=== PATIENT | male | born 1990 | race Caucasian/White ===

== ENCOUNTER 2016-07-21 14:59 | Emergency (ER) | payer MEDICARE, MEDICAID ==
[2016-07-21 14:59] VITALS: BMI 20.3
[2016-07-21 15:08] VITALS: RESP 18; TEMP 98
[2016-07-21 15:22] VITALS: O2SAT 100
--- NOTE | 2016-07-21 15:40 | C.PDOC ---
History Of Present Illness 26 yr old male presents to the ER stating yesterday he was shoveling some heavy snow and now he has pain in the lower back which is made worse with movement. 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 Patient denies fever, chest pain, SOB, vomiting, abdominal pain, diarrhea, dysuria, hematuria, incontinence, weakness or numbness. Time Seen by Provider: 07/21/16 15:17 Chief Complaint (Nursing): Back Pain History Per: Patient History/Exam Limitations: no limitations Onset/Duration Of Symptoms: Days (1) Current Symptoms Are (Timing): Still Present Quality Of Discomfort: Aching Pain Scale Rating Of: 5 Exacerbating Factor(s): Movement Recent travel outside of the [place]: No Past Medical History Reviewed: Historical Data, Nursing Documentation, Vital Signs Vital Signs: Last Vital Signs Temp 98 F 07/21/16 15:18 Pulse 60 07/21/16 15:18 Resp 18 07/21/16 15:18 BP 107/65 07/21/16 15:18 Pulse Ox 100 07/21/16 15:42 - Medical History PMH: No Chronic Diseases Other PMH: Clubbed feet Other Surgeries: Surgery to the left foot and ankle for clubbed feet - [facility] Procedures CL REDUC DISLOC-SHOULDER (09/24/12) Family History: States: No Known Family Hx - Social History Hx Alcohol Use: Yes Hx Substance Use: No - Immunization History Hx Tetanus Toxoid Vaccination: No Hx Influenza Vaccination: No Hx Pneumococcal Vaccination: No Review Of Systems Except As Marked, All Systems Reviewed And Found Negative. Constitutional: Negative for: Fever Cardiovascular: Negative for: Chest Pain Respiratory: Negative for: Shortness of Breath Gastrointestinal: Negative for: Vomiting, Abdominal Pain, Diarrhea Genitourinary: Negative for: Dysuria, Incontinence, Hematuria Musculoskeletal: Positive for: Back Pain (lower back pain ), Other ((+) Left ankle pain ) Neurological: Negative for: Weakness, Numbness Physical Exam - Physical Exam Appears: Non-toxic, No Acute Distress Skin: Warm, Dry Head: Atraumatic, Normacephalic Eye(s): bilateral: Normal Inspection Oral Mucosa: Moist Neck: Normal, Normal ROM, No Midline Cervical Tenderness, No Paracervical Tenderness, Supple Chest: Symmetrical, No Tenderness Cardiovascular: Rhythm Regular, No Friction Rub, No Murmur Respiratory: Normal Breath Sounds, No Rales, No Rhonchi, No Stridor, No Wheezing Gastrointestinal/Abdominal: Normal Exam, Soft, No Tenderness, No Guarding, No Rebound Back: Paraspinal Tenderness (bilateral mild paraspinal lumbar tenderness. No midline tenderness) Extremity: Normal ROM, Capillary Refill (< 2 sec), Other (Left Ankle - Mild swelling to the plantar arch. No tenderness. ) Extremity: Bilateral: Normal Color And Temperature Neurological/Psych: Oriented x3, Normal Speech, Normal Motor, Normal Sensation Gait: Steady ED Course And Treatment O2 Sat by Pulse Oximetry: 100 (on RA) Pulse Ox Interpretation: Normal Progress Note: No xrays are warranted at this time as the patient had no acute trauma and is walking with normal steady gait. On re-exam, the patient reports improvement of symptoms. Lungs are CTA, heart is RRR, abdomen is soft, non- tender and tolerating PO well. Follow up with the medical doctor/Research Geologist within 1-2 days. Return if worsened. Disposition - Disposition Referrals: Podiatry Clinic [Outside] Disposition: HOME/ ROUTINE Disposition Time: 16:01 Condition: GOOD Additional Instructions: Follow up with the medical doctor/Research Geologist within 1-2 days. Return if worsened. 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 - Scribe Statement The provider has reviewed the documentation as recorded by the Scribe Dyan Jarvis All medical record entries made by the Kristie were at my direction and personally dictated by me. I have reviewed the chart and agree that the record accurately reflects my personal performance of the history, physical exam, medical decision making, and the department course for this patient. I have also personally directed, reviewed, and agree with the discharge instructions and disposition.
[2016-07-21 16:26] VITALS: BP 110/68; PULSE 62
== END 2016-07-21 16:26 | disposition home or self-care (01) ==
LOC: C.ER 14:59
DX: S39.012A Strain of muscle, fascia and tendon of lower back, initial encounter (principal); X58.XXXA Exposure to other specified factors, initial encounter; Y93.H1 Activity, digging, shoveling and raking; M25.572 Pain in left ankle and joints of left foot
CPT/HCPCS: 96372; 99283; J1885

== ENCOUNTER 2016-08-15 13:31 | Emergency (ER) | payer MEDICARE, MEDICAID ==
[2016-08-15 13:31] VITALS: BMI 20.3
[2016-08-15 13:43] VITALS: BP 107/66; PULSE 85; RESP 20; TEMP 97.4; O2SAT 100
--- NOTE | 2016-08-15 15:08 | C.PDOC ---
History Of Present Illness 26 year old patient presents to the ED complaining of bilateral chronic ankle pain that has been ongoing for several years. Patient reports he has a history of bilaterally clubbed feet. He had surgery on them, but there has been pain since. Patient denies any trauma, numbness or weakness. Time Seen by Provider: 08/15/16 13:51 Chief Complaint (Nursing): Lower Extremity Problem/Injury History Per: Patient History/Exam Limitations: no limitations Onset/Duration Of Symptoms: Other (several years) Current Symptoms Are (Timing): Still Present Severity: Moderate Pain Scale Rating Of: 4 Recent travel outside of the [place]: No Past Medical History Reviewed: Historical Data, Nursing Documentation, Vital Signs Vital Signs: Last Vital Signs Temp 97.4 F L 08/15/16 13:41 Pulse 85 08/15/16 13:41 Resp 20 08/15/16 13:41 BP 107/66 08/15/16 13:41 Pulse Ox 100 08/15/16 20:15 - [facility] Procedures CL REDUC DISLOC-SHOULDER (09/24/12) Family History: States: Unknown Family Hx - Social History Hx Alcohol Use: Yes Hx Substance Use: No - Immunization History Hx Tetanus Toxoid Vaccination: No Hx Influenza Vaccination: No Hx Pneumococcal Vaccination: No Review Of Systems Except As Marked, All Systems Reviewed And Found Negative. Musculoskeletal: Positive for: Other (bilateral ankle pain) Neurological: Negative for: Weakness, Numbness Physical Exam - Physical Exam Appears: Non-toxic, No Acute Distress Skin: Warm, Dry Cardiovascular: Rhythm Regular Extremity: Normal ROM, No Calf Tenderness, Capillary Refill (<2 seconds), No Deformity, Other (minimal swelling to the medial aspect of bilateral ankles; normal pulse; <2 seconds capillary refill) Neurological/Psych: Oriented x3, Normal Motor, Normal Sensation Gait: Steady ED Course And Treatment O2 Sat by Pulse Oximetry: 100 (RA) Pulse Ox Interpretation: Normal Progress Note: Flexeril and Toradol given. Upon reassessment, patient's pain is improving. Patient is discharged and instructed to follow up with PMD. Return if symptoms worsen. Disposition - Disposition Referrals: Podiatry Clinic [Outside] Disposition: HOME/ ROUTINE Disposition Time: 15:04 Condition: GOOD Additional Instructions: Follow up with the medical doctor within 1-2 days. Return if worsened. Prescriptions: Naproxen [Naprosyn] 500 mg PO BID #20 tab traMADol [Ultram] 50 mg PO Q6 PRN #15 tab PRN Reason: Pain Instructions: Swollen Joint (ED) - Clinical Impression Clinical Impression: Pain in both feet, Ankle pain - PA / HOUSING COORDINATOR / Resident Statement MD/DO has reviewed & agrees with the documentation as recorded. - Scribe Statement The provider has reviewed the documentation as recorded by the Scribe Pooja Quinn All medical record entries made by the Scribe were at my direction and personally dictated by me. I have reviewed the chart and agree that the record accurately reflects my personal performance of the history, physical exam, medical decision making, and the department course for this patient. I have also personally directed, reviewed, and agree with the discharge instructions and disposition.
== END 2016-08-15 15:10 | disposition home or self-care (01) ==
LOC: C.ER 13:31
DX: M25.572 Pain in left ankle and joints of left foot (principal); M25.571 Pain in right ankle and joints of right foot
CPT/HCPCS: 96372; 99284; J1885

== ENCOUNTER 2016-12-26 20:36 | Emergency (ER) | payer MEDICARE, MEDICAID ==
[2016-12-26 20:37] VITALS: BMI 20.3
[2016-12-26 20:50] VITALS: BP 123/69; PULSE 89; RESP 16; TEMP 98.2; O2SAT 98
--- NOTE | 2016-12-26 23:30 | CT ---
EXAM: CT Right Lower Extremity Without Intravenous Contrast CLINICAL HISTORY: 26 years old, male; Injury or trauma; Fall; Initial encounter; Swelling (edema); Ankle and foot; Right; Additional info: Injury of foot/ankle, S/P multiple foot surgeries TECHNIQUE: Axial computed tomography images of the right lower extremity without intravenous contrast. All CT scans at this facility use one or more dose reduction techniques, viz.: automated exposure control; ma/kV adjustment per patient size (including targeted exams where dose is matched to indication; i.e. head); or iterative reconstruction technique. Coronal and sagittal reformatted images were created and reviewed. COMPARISON: No relevant prior studies available. FINDINGS: Bones/joints: No acute fracture. No dislocation. Soft tissues: Moderate soft tissue swelling. IMPRESSION: Moderate soft tissue swelling, without acute fracture.
--- NOTE | 2016-12-26 23:34 | C.PDOC ---
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 Patient has a Hx of multiple surgeries on his feet. Time Seen by Provider: 12/26/16 21:54 Chief Complaint (Nursing): Lower Extremity Problem/Injury History Per: Patient History/Exam Limitations: no limitations Onset/Duration Of Symptoms: Hrs Current Symptoms Are (Timing): Still Present Recent travel outside of the [place]: No - Ankle/Foot Description Of Injury: Fell Past Medical History Reviewed: Historical Data, Nursing Documentation, Vital Signs Vital Signs: Last Vital Signs Temp 98.2 F 12/26/16 20:48 Pulse 89 12/26/16 20:48 Resp 16 12/26/16 20:48 BP 123/69 12/26/16 20:48 Pulse Ox 98 12/26/16 23:54 - Medical History PMH: No Chronic Diseases Surgical History: No Surg Hx - [facility] Procedures CL REDUC DISLOC-SHOULDER (09/24/12) Family History: States: Unknown Family Hx - Social History Hx Alcohol Use: Yes Hx Substance Use: No - Immunization History Hx Tetanus Toxoid Vaccination: No Hx Influenza Vaccination: No Hx Pneumococcal Vaccination: No Review Of Systems Gastrointestinal: Negative for: Nausea, Vomiting Musculoskeletal: Positive for: Foot Pain Neurological: Negative for: Weakness, Numbness Physical Exam - Physical Exam Appears: Non-toxic, No Acute Distress Skin: Normal Color, Warm, Dry Head: Atraumatic, Normacephalic Oral Mucosa: Moist Extremity: Tenderness (Right foot), Capillary Refill (Good), Deformity (Right foot with multiple post op scars), No Swelling Pulses: Left Dorsalis Pedis: Normal, Right Dorsalis Pedis: Normal Neurological/Psych: Oriented x3, Normal Speech, Normal Cognition ED Course And Treatment O2 Sat by Pulse Oximetry: 98 (Room air) Pulse Ox Interpretation: Normal - CT Scan/US CT LE Other Rad Studies (CT/US): Read By Radiologist, Radiology Report Reviewed CT/US Interpretation: EXAM: CT Right Lower Extremity Without Intravenous Contrast. CLINICAL HISTORY: 26 years old, male; Injury or trauma; Fall; Initial encounter; Swelling (edema); Ankle and foot; Right;. Additional info: Injury of foot/ankle, S/P multiple foot surgeries. TECHNIQUE: Axial computed tomography images of the right lower extremity without intravenous contrast. All CT. scans at this facility use one or more dose reduction techniques, viz. : automated exposure control;. ma/kV adjustment per patient size (including targeted exams where dose is matched to indication; i.e. head); or iterative reconstruction technique. Coronal and sagittal reformatted images were created and reviewed. COMPARISON: No relevant prior studies available. FINDINGS: Bones/joints: No acute fracture. No dislocation. Soft tissues: Moderate soft tissue swelling. IMPRESSION: Moderate soft tissue swelling, without acute fracture. Thank you for allowing us to participate in the care of your patient. Dictated and Authenticated by: Opal Grande MD Progress Note: CT of the right foot ordered. Toradol and tylenol administered. On reevaluation, patient's pain has improved, will discharge home and advise to follow up with podiatry. Ortho shoe and crutches were given by RN. Disposition - Disposition Referrals: Eddie Ball III, MD [Staff Provider] - Evert Donaldson DPM [Staff Provider] - Disposition: HOME/ ROUTINE Disposition Time: 23:32 Condition: STABLE Additional Instructions: Follow up with PMD, Orthopedist or Production Administrative Assistant within 1-2 days. Return to ED if feel worse. Prescriptions: Ibuprofen [Motrin Tab] 600 mg PO Q8 #30 tab traMADol [Ultram] 50 mg PO Q6 #30 tab Instructions: Foot Sprain (ED) Forms: [facility] (Welsh) - Clinical Impression Clinical Impression: Foot sprain - Scribe Statement The provider has reviewed the documentation as recorded by the Scribe Nicholas Bueno All medical record entries made by the Scribe were at my direction and personally dictated by me. I have reviewed the chart and agree that the record accurately reflects my personal performance of the history, physical exam, medical decision making, and the department course for this patient. I have also personally directed, reviewed, and agree with the discharge instructions and disposition.
== END 2016-12-26 23:53 | disposition home or self-care (01) ==
LOC: C.ER 20:36
DX: S93.601A Unspecified sprain of right foot, initial encounter (principal); W01.0XXA Fall on same level from slipping, tripping and stumbling without subsequent striking against object, initial encounter; Y93.9 Activity, unspecified; Y92.9 Unspecified place or not applicable
CPT/HCPCS: 73700; 96372; 99285; J1885